=== PATIENT | female | born 1995 | race Caucasian/White ===

== ENCOUNTER 2017-07-03 00:23 | Emergency (ER) | payer OTHER ==
[2017-07-03 00:49] VITALS: O2SAT 96
[2017-07-03] MEDS ORDERED: LORazepam 2 MG/ML INJ IVP ONE (01:14)
[2017-07-03 01:31] LABS: ADD MORPH? NO; ADD SCAN? YES; LEFT SHIFT FLG 0 (0-99); LIPEMIA HEMOLYSIS FLAG 90 (0-99)
[2017-07-03 01:33] LABS: ANION GAP 12 mEq/L (8-16); CARBON DIOXIDE 24 mEq/l (22-31); CHLORIDE 103 mEq/L (97-110); CREATININE 0.7 mg/dL (0.6-1.0); GLOMERULAR FILTRATION RATE > 60; GLUCOSE 95 mg/dL (70-100); POTASSIUM 3.8 mEq/L (3.5-5.2); SODIUM 139 mEq/L (134-144)
[2017-07-03 01:34] LABS: FRAGMENT RBC FLAG 0 (0-99); HEMATOCRIT 42.3 % (38.0-47.0); HEMOGLOBIN 15.2 g/dL (12.6-16.3); MEAN CELL HEMOGLOBIN 32.5 pg (27.9-34.1); MEAN CELL HEMOGLOBIN CONCENTR. 35.9 g/dL (32.4-36.7); MEAN CELL VOLUME 90.4 fL (81.5-99.8); PLATELET CLUMPS FLAG 40 (0-99); PLATELET COUNT 138 10^3/uL (150-400); RED BLOOD CELL COUNT 4.68 10^6/uL (4.18-5.33); RED CELL DISTRIBUTION WIDTH 12.7 % (11.5-15.2)
[2017-07-03 01:38] LABS: ATYPICAL LYMPHOCYTE FLAG 280 (0-99)
[2017-07-03 02:22] LABS: ADD DIFF? YES; SCAN POSITIVE
[2017-07-03 02:27] LABS: PLATELET ESTIMATE DECREASED (ADEQ)
--- NOTE | 2017-07-03 02:37 | EDPHY ---
H & P Stated Complaint: SLURRED SPEECH Time Seen by Provider: 07/03/17 00:29 HPI/ROS: HPI The patient presents with multiple complaints, most prominent is numbness of her left face which has been present for the last 2 and 0.5 hours. Yesterday, she said she was feeling more sleepy than usual and not herself. She had the slow onset today of numbness and tingling of her left face which was constant and progressive. She describes some tightness in her neck and mild headache. She also describes visual aura in which she sees streaks of color in her visual field. She became concerned when she had difficulty speaking because of the numbness in her face and called her mother who brought her into the emergency department. Her symptoms have now mostly resolved though she still is having numbness of her left face. She says with her migraines, the symptoms are usual for her, however seemed more pronounced tonight. REVIEW OF SYSTEMS Constitutional: No fever, no chills. Eyes: No discharge. ENT: No sore throat. Cardiovascular: No chest pain, no palpitations. Respiratory: No cough, no shortness of breath. Gastrointestinal: No abdominal pain, no vomiting. Genitourinary: No hematuria. Musculoskeletal: No back pain. Skin: No rashes. Neurological: No headache. PMHx: History of fibromyalgia, history of atypical migraines, recently treated for sinusitis, finished antibiotics today Soc Hx: College student Family history, grandfather had a stroke at a young age PHYSICAL General Appearance: Alert, no distress Eyes: Pupils equal and round no pallor or injection ENT, Mouth: Mucous membranes moist Respiratory: There are no retractions, lungs are clear to auscultation Cardiovascular: Regular rate and rhythm Gastrointestinal: Abdomen is soft and non-tender, no masses, bowel sounds normal Neurological: Alert and oriented x3 cranial nerves intact except decreased facial sensation to light touch in V1 through V3 distribution on the left, 5/5 strength in upper and lower extremities, normal finger to nose testing, normal gait Skin: Warm and dry, no rashes Musculoskeletal: Neck is supple non tender Extremities: symmetrical, full range of motion Psychiatric: Patient is oriented X 3, there is no agitation Source: Patient, Family Exam Limitations: No limitations - Personal History LMP (Females 10-55): IUD In Place Current Tetanus/Diphtheria Vaccine: Yes Current Tetanus Diphtheria and Acellular Pertussis (TDAP): Yes - Medical/Surgical History Hx Asthma: Yes Hx Chronic Respiratory Disease: No Hx Diabetes: Yes Hx Cardiac Disease: Yes Hx Renal Disease: Yes Hx Cirrhosis: Yes Hx Alcoholism: Yes Hx HIV/AIDS: Yes Hx Splenectomy or Spleen Trauma: Yes Other PMH: depression, fibromyalgia - Social History Smoking Status: Never smoked Constitutional: Initial Vital Signs Temperature (C) 36.8 C 07/03/17 00:30 Heart Rate 89 07/03/17 00:30 Respiratory Rate 16 07/03/17 00:30 Blood Pressure 120/76 07/03/17 00:30 O2 Sat (%) 96 07/03/17 00:30 O2 Delivery Mode Room Air Allergies/Adverse Reactions: No Known Allergies Allergy (Unverified 07/03/17 00:34) Home Medications: Medication Instructions Recorded Vits 06/28/09 Albuterol 07/03/17 Cymbalta 07/03/17 Propranolol HCl 07/03/17 Medical Decision Making - Diagnostics Imaging Results: CT scan of head without contrast is unremarkable, discussed with Dr. Kelley of Radiology. Imaging: Discussed imaging studies w/ corporate wellness coordinator Radiologist Differential Diagnosis: This is a 21-year-old female with history of fibromyalgia and atypical migraines who presents with left-sided facial numbness which was briefly associated with slurred speech she reports. On exam here she has normal vital signs, is well-appearing, does not have any neurologic deficit except decreased sensation to her left face. I do not appreciate any slurring of her speech and this could be related to the numb she was feeling in her face. She does have numbness with her atypical migraines, however this felt more pronounced. She is very concerned about a stroke. I have considered ischemic stroke, intracranial hemorrhage, atypical migraine as the cause of her symptoms. In the emergency department, she was given Ativan for muscle relaxation per her request for neck and head pain she is having. She felt better while in the emergency department her symptoms improved. CT scan of her head was unremarkable. She agrees that her symptoms were likely related to an atypical migraine. Interestingly, labs demonstrated leukopenia. She does not have a history of this. She initially did not have any signs or symptoms of infection, however upon discharge she did have a temperature of 38 C. I discussed this with her, she was recently treated with antibiotics for sinusitis. She has not had any fevers recently. Review of systems is unrevealing. I do not think these neurologic symptoms that she was experiencing tonight are related to meningitis or encephalitis given their nature and her well appearance without any mental status change, severe headache , photophobia, nuchal rigidity. I have advised her to return if she is worse in any way, otherwise she can follow up with her usual treating doctors. - Data Points Laboratory Results: Laboratory Results 07/03/17 00:53 07/03/17 00:53 07/03/17 07/03/17 00:53 00:53 WBC 2.76 10^3/uL L 10^3/uL (3.80-9.50) RBC 4.68 10^6/uL 10^6/uL (4.18-5.33) Hgb 15.2 g/dL g/dL (12.6-16.3) Hct 42.3 % % (38.0-47.0) MCV 90.4 fL fL (81.5-99.8) MCH 32.5 pg pg (27.9-34.1) MCHC 35.9 g/dL g/dL (32.4-36.7) RDW 12.7 % % (11.5-15.2) Plt Count 138 10^3/uL L 10^3/uL (150-400) MPV 9.0 fL fL (8.7-11.7) Neut % (Auto) Not Reported Lymph % (Auto) Not Reported [place] % (Auto) Not Reported Eos % (Auto) Not Reported Baso % (Auto) Not Reported Nucleat RBC Rel Count 0.0 % % (0.0-0.2) Absolute Neuts (auto) Not Reported Absolute Lymphs (auto) Not Reported Absolute Monos (auto) Not Reported Absolute Eos (auto) Not Reported Absolute Basos (auto) Not Reported Absolute Nucleated RBC 0.00 10^3/uL 10^3/uL (0-0.01) Immature Gran % Not Reported Seg Neutrophils % 44 % % Band Neutrophils % 10 % % Lymphocytes % 34 % % Monocytes % 10 % % Eosinophils % 2 % % Immature Gran # Not Reported Absolute Seg Neuts 1.21 10^/uL L 10^/uL (1.70-6.50) Absolute Band Neuts 0.28 10^3/uL 10^3/uL (0.00-0.70) Absolute Lymphocytes 0.94 10^3/uL L 10^3/uL (1.00-3.00) Absolute Monocytes 0.28 10^3/uL L 10^3/uL (0.30-0.80) Absolute Eosinophils 0.06 10^3/uL 10^3/uL (0.03-0.40) RBC/WBC/PLT Morphology NORMAL (NORMAL) Atypical Lymphocytes 1+ H Platelet Estimate DECREASED L (ADEQ) Sodium 139 mEq/L mEq/L (134-144) Potassium 3.8 mEq/L mEq/L (3.5-5.2) Chloride 103 mEq/L mEq/L (97-110) Carbon Dioxide 24 mEq/l mEq/l (22-31) Anion Gap 12 mEq/L mEq/L (8-16) BUN 9 mg/dL mg/dL (7-23) Creatinine 0.7 mg/dL mg/dL (0.6-1.0) Estimated GFR > 60 Glucose 95 mg/dL mg/dL (70-100) Calcium 9.0 mg/dL mg/dL (8.5-10.4) Medications Given: Discontinued Medications Lorazepam (Ativan Injection) 0.5 mg IVP EDNOW ONE Stop: 07/03/17 01:15 Last Admin: 07/03/17 01:26 Dose: 0.5 mg Departure - Departure Disposition: Home, Routine, Self-Care Clinical Impression: Paresthesia Headache Qualifiers: Headache type: unspecified Headache chronicity pattern: acute headache Intractability: not intractable Qualified Code(s): R51 - Headache Leukopenia Qualifiers: Leukopenia type: other Qualified Code(s): D72.818 - Other decreased white blood cell count Condition: Good Instructions: Migraine Headache (ED) Additional Instructions: Please return to the emergency department if you are worse in any way. Otherwise I recommend that you follow up with your primary treating physician in the next few days. You will need to have your blood work rechecked in the next few weeks because of the low white blood cell count we found today. Referrals: [facility] FOREMAN [Other] - As per Instructions Stand Alone Forms: School Excuse
[2017-07-03 02:47] VITALS: BP 98/79; PULSE 91; RESP 18; TEMP 100.9
== END 2017-07-03 02:54 | disposition home or self-care (01) ==
DX: D72.818 Other decreased white blood cell count (principal); R20.2 Paresthesia of skin; R51 Headache; J45.909 Unspecified asthma, uncomplicated; E11.9 Type 2 diabetes mellitus without complications
CPT/HCPCS: 96374; J2060